=== PATIENT | female | born 1990 | race Caucasian/White ===

== ENCOUNTER 2025-06-12 15:35 | Observation (INO) | payer BC ==
[2025-06-12] MEDS ORDERED: propofoL 500 MG/50 ML 50 ML ONE ×2 (16:16→17:24)
[2025-06-12] MEDS ORDERED: Propofol 200 MG/20 ML SDV ONE (16:25)
[2025-06-12] MEDS ORDERED: Ondansetron 4 MG/2 ML SDV ONE (16:26)
[2025-06-12] MEDS ORDERED: Dexamethasone 4 MG/ML 5 ML MDV ONE (16:26)
[2025-06-12] MEDS ORDERED: fentaNYL 250 MCG/5 ML SDV ONE (16:28)
[2025-06-12] MEDS: Lactated Ringers 1,000 ML IV SCH ×2 (16:29→21:03)
[2025-06-12] MEDS: cefOXitin 1 GM in Water For Injection, Sterile 10 ML IVPUSH ONE (17:17)
[2025-06-12] MEDS: Heparin Sodium 5,000 Units/ML Vial IVPUSH ONE (17:18)
[2025-06-12] MEDS ORDERED: Labetalol 100 MG/20 ML MDV ONE (17:18)
[2025-06-12] MEDS ORDERED: Lactated Ringers 1,000 ML ONE (17:25)
[2025-06-12] MEDS ORDERED: fentaNYL 100 MCG/2 ML SDV IVPUSH PRN (19:03)
[2025-06-12] MEDS: Heparin Sodium 5,000 Units/ML Vial SUBCUT SCH (21:02)
[2025-06-12] MEDS: cefOXitin 2 GM in Water For Injection, Sterile 20 ML IVPUSH SCH (23:40)
== END 2025-06-13 08:56 | disposition home or self-care (01) ==
LOC: JD.ED 15:35 → JD.MS 16:58
PROVIDERS: ADMIT Surgery; ATTEND Surgery
DX: K35.30 Acute appendicitis with localized peritonitis, without perforation or gangrene (principal); E05.90 Thyrotoxicosis, unspecified without thyrotoxic crisis or storm; F17.210 Nicotine dependence, cigarettes, uncomplicated; Z91.018 Allergy to other foods; Z91.013 Allergy to seafood; Z88.8 Allergy status to other drugs, medicaments and biological substances; Z79.890 Hormone replacement therapy; Z79.899 Other long term (current) drug therapy
CPT/HCPCS: 36415; 44970; 84702; A4216; J0694; J1100; J1644; J1920; J2270; J2405; J2704; J3010; J7120; J1171; J3490